=== PATIENT | female | born 1990 | race Caucasian/White ===

== ENCOUNTER 2019-08-04 03:28 | Emergency (ER) | payer OTHER ==
[~2019-08-04] VITALS: Ht 165.1 cm; Wt 72.7 kg
[2019-08-04] MEDS ORDERED: IV NORMAL SALINE 1000ML BAG 1,000 ML IV SCH (04:00)
[2019-08-04 04:01] LABS: BASO % 1 % (0-3); EOS # 0.2 x10^3/uL (0.0-0.7); EOS % 3 % (0-3); LYMPH # 2.4 x10^3/uL (1.0-4.8); LYMPH % 28 % (24-48); MEAN CORPUSCULAR HEMOGLOBIN 29 pg (25-35); MEAN CORPUSCULAR HGB CONC 33 g/dL (31-37); MEAN CORPUSCULAR VOLUME 86 fL (79-100); MONO # 0.8 x10^3/uL (0.0-1.1); MONO % 10 % (0-9); NEUT # 4.8 x10^3/uL (1.8-7.7); NEUT % 58 % (31-73); PLATELET COUNT 241 x10^3/uL (140-400); RED BLOOD COUNT 4.89 x10^6/uL (3.50-5.40); RED CELL DISTRIBUTION WIDTH 13.2 % (11.5-14.5); WHITE BLOOD COUNT 8.3 x10^3/uL (4.0-11.0)
[2019-08-04 04:10] LABS: CALCIUM 8.8 mg/dL (8.5-10.1); CREATININE 1.2 mg/dL (0.6-1.0); GFR 53.1; POTASSIUM 3.8 mmol/L (3.5-5.1)
[2019-08-04] MEDS ORDERED: fentaNYL PF VIAL 100 MCG/2 ML VIAL IV ONE (04:15)
[2019-08-04] MEDS ORDERED: ONDANSETRON PF 4 MG/2 ML VIAL. IV ONE (04:15)
[2019-08-04 04:16] LABS: ALBUMIN 3.7 g/dL (3.4-5.0); ALBUMIN/GLOBULIN RATIO 1.2 (1.0-1.7); TOTAL BILIRUBIN 0.3 mg/dL (0.2-1.0); TOTAL PROTEIN 6.8 g/dL (6.4-8.2)
--- NOTE | 2019-08-04 04:18 | PHYS DOC ---
Past Medical History Past Medical History: Other Additional Past Medical Histor: POLYNEPHRITIS Past Surgical History: Other Additional Past Surgical Histo: RIGHT KIDNEY REMOVED, MULTIPLE ABORTIONS, BREAT AUGMENTATION Smoking Status: Current Every Day Smoker Alcohol Use: Occasionally Adult General Chief Complaint Chief Complaint: FLANK PAIN [facility] HPI Patient is a 28 year old female with history of pyelonephritis and nephrectomy who presents with complaining of right lower quadrant pain. Patient complaining of sudden onset of cramping right lower quadrant pain about 45 minutes ago as a sharp without radiation. Patient said the pain is intermittent and lasts a few seconds and it started every few minutes. Patient states she has had episodes of cramping abdominal pain previously the future and wants to be at this time. Pain is worse than her usual and rated her pain 10 over 10. Patient did not take any pain medication at home. Patient complaining of nausea without vomiting, diarrhea and constipation, urinary symptoms, vaginal bleeding or discharge, . Review of Systems Review of Systems Constitutional: Denies fever or chills [] Eyes: Denies change in visual acuity, redness, or eye pain [] HENT: Denies nasal congestion or sore throat [] Respiratory: Denies cough or shortness of breath [] Cardiovascular: No additional information not addressed in HPI [] GI: Reports abdominal pain, nausea, denies vomiting, bloody stools or diarrhea [] : Denies dysuria or hematuria [] Musculoskeletal: Denies back pain or joint pain [] Integument: Denies rash or skin lesions [] Neurologic: Denies headache, focal weakness or sensory changes [] Endocrine: Denies polyuria or polydipsia [] All other systems were reviewed and found to be within normal limits, except as documented in this note. Current Medications Current Medications Current Medications Medications (Trade) Dose Ordered Sig/Iglesia Start Time Stop Time Status Last Admin Dose Admin Fentanyl Citrate (Fentanyl 2ml Vial) 50 mcg 1X ONCE 08/04/19 04:15 08/04/19 04:16 DC 08/04/19 04:17 50 MCG Ondansetron HCl (Zofran) 4 mg 1X ONCE 08/04/19 04:15 08/04/19 04:16 DC 08/04/19 04:17 4 MG Sodium Chloride 1,000 ml @ 1,000 mls/hr Q1H 08/04/19 04:00 08/04/19 04:59 DC 08/04/19 04:17 1,000 MLS/HR Allergies Allergies Allergies Coded Allergies Type Severity Reaction Last Updated Verified No Known Drug Allergies 08/04/19 No Physical Exam Physical Exam Constitutional: Well developed, well nourished, mild distress, non-toxic appearance. [] HENT: Normocephalic, atraumatic. Eyes: PERRLA, EOMI, conjunctiva normal, no discharge. [] Neck: Normal range of motion, no tenderness, supple, no stridor. [] Cardiovascular:Heart rate regular rhythm, no murmur [] Lungs & Thorax: Bilateral breath sounds clear to auscultation [] Abdomen: Bowel sounds normal, soft, no tenderness, no masses, no pulsatile masses. [] Skin: Warm, dry, no erythema, no rash. [] Back: No tenderness, no CVA tenderness. [] Extremities: No tenderness, no cyanosis, no clubbing, ROM intact, no edema. [] Neurologic: Alert and oriented X 3, no focal deficits noted. [] Psychologic: Affect anxious, judgement normal, mood normal. [] Current Patient Data Vital Signs Vital Signs Date Time Temp Pulse Resp B/P (MAP) Pulse Ox O2 Delivery O2 Flow Rate FiO2 08/04/19 04:17 Room Air 08/04/19 03:32 98.0 109 18 127/69 (88) 99 98.0 Lab Values Laboratory Tests Test 08/04/19 03:50 08/04/19 03:56 08/04/19 04:53 White Blood Count 8.3 x10^3/uL (4.0-11.0) Red Blood Count 4.89 x10^6/uL (3.50-5.40) Hemoglobin 14.0 g/dL (12.0-15.5) Hematocrit 42.0 % (36.0-47.0) Mean Corpuscular Volume 86 fL (79-100) Mean Corpuscular Hemoglobin 29 pg (25-35) Mean Corpuscular Hemoglobin Concent 33 g/dL (31-37) Red Cell Distribution Width 13.2 % (11.5-14.5) Platelet Count 241 x10^3/uL (140-400) Neutrophils (%) (Auto) 58 % (31-73) Lymphocytes (%) (Auto) 28 % (24-48) Monocytes (%) (Auto) 10 % (0-9) H Eosinophils (%) (Auto) 3 % (0-3) Basophils (%) (Auto) 1 % (0-3) Neutrophils # (Auto) 4.8 x10^3/uL (1.8-7.7) Lymphocytes # (Auto) 2.4 x10^3/uL (1.0-4.8) Monocytes # (Auto) 0.8 x10^3/uL (0.0-1.1) Eosinophils # (Auto) 0.2 x10^3/uL (0.0-0.7) Basophils # (Auto) 0.0 x10^3/uL (0.0-0.2) Sodium Level 139 mmol/L (136-145) Potassium Level 3.8 mmol/L (3.5-5.1) Chloride Level 104 mmol/L (98-107) Carbon Dioxide Level 26 mmol/L (21-32) Anion Gap 9 (6-14) Blood Urea Nitrogen 20 mg/dL (7-20) Creatinine 1.2 mg/dL (0.6-1.0) H Estimated GFR (Cockcroft-Gault) 53.1 BUN/Creatinine Ratio 17 (6-20) Glucose Level 122 mg/dL (70-99) H Calcium Level 8.8 mg/dL (8.5-10.1) Total Bilirubin 0.3 mg/dL (0.2-1.0) Aspartate Amino Transferase (AST) 18 U/L (15-37) Alanine Aminotransferase (ALT) 22 U/L (14-59) Alkaline Phosphatase 67 U/L (46-116) Total Protein 6.8 g/dL (6.4-8.2) Albumin 3.7 g/dL (3.4-5.0) Albumin/Globulin Ratio 1.2 (1.0-1.7) Lipase 126 U/L (73-393) POC Urine HCG, Qualitative Hcg negative (Negative) Urine Color Yellow Urine Clarity Clear Urine pH 6.5 Urine Specific [place] 1.020 Urine Protein Negative mg/dL (NEG-TRACE) Urine Glucose (UA) Negative mg/dL (NEG) Urine Ketones (Stick) Negative mg/dL (NEG) Urine Blood Moderate (NEG) Urine Nitrite Negative (NEG) Urine Bilirubin Negative (NEG) Urine Urobilinogen Dipstick 0.2 mg/dL (0.2 mg/dL) Urine Leukocyte Esterase Negative (NEG) Urine RBC 1-2 /HPF (0-2) Urine WBC 1-4 /HPF (0-4) Urine Squamous Epithelial Cells Many /LPF Urine Bacteria Many /HPF (0-FEW) Urine Mucus Slight /LPF Laboratory Tests 08/04/19 03:50 Laboratory Tests 08/04/19 03:50 EKG EKG [] Radiology/Procedures Radiology/Procedures [facility] [address] [place] [address] IMAGING REPORT Signed PATIENT: ALMA DE LA VEGA ACCOUNT: [id number] : 1990 LOCATION: ER AGE: 28 SEX: F EXAM STATUS: REG ER ORD. PHYSICIAN: KODY JAMISON MD REASON: RLQ pain PROCEDURE: CT ABDOMEN PELVIS WO CONTRAST CT abdomen and pelvis without contrast. HISTORY: Right lower quadrant pain CT scan the abdomen pelvis was done without intravenous contrast. Lung bases are clear. There is no effusion. There is marked spondylolisthesis at L5-S1 with spondylolysis at L5. Liver is normal in appearance. Gallbladder is contracted. Spleen and adrenal glands are normal. There is absence of the right kidney. There is no mass or hydronephrosis in the left kidney. There is no bowel obstruction. There is a small midline abdominal hernia containing mesentery. Appendix is normal. There is an intrauterine contraceptive device in normal position. Uterus and ovaries are otherwise unremarkable. IMPRESSION: 1. 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 2. Normal appendix. 3. No bowel obstruction or other acute finding. 4. Absence of the right kidney PQRS Compliance Statement: One or more of the following individualized dose reduction techniques were utilized for this examination: 1. Automated exposure control 2. Adjustment of the mA and/or kV according to patient size 3. Use of iterative reconstruction technique Electronically signed by: Wilian Bryant MD (08/04/2019 5:41 AM) [id number] DICTATED and SIGNED BY: WILIAN BRYANT MD DATE: 08/04/19 0541 Course & Med Decision Making Course & Med Decision Making Pertinent Labs and Imaging studies reviewed. (See chart for details) discharge: I've spoken with the patient and/or caregivers. I've explained the patient's condition, diagnosis and treatment plan based on information available to me at this time. I've answered the patient's and/or caregivers questions and addressed any concerns. The patient and/or caregivers have a good understanding the patient's diagnosis, condition and treatment plan as can be expected at this point. Vital signs have been stabilized. The patient's condition is stable for discharge from the emergency department. The patient will pursue further outpatient evaluation with her primary care provider or other designated consulting physician as outlined in the discharge instructions. Patient and/or caregivers are agreeable to this plan of care and follow-up instructions have been explained in detail. The patient and/or caregi vers have received these instructions in written format and expressed understanding of these discharge instructions. The patient and her caregivers are aware that if any significant change in condition or worsening of symptoms should prompt him to immediately return to this of the closest emergency department. If an emergent department is not readily available I would encourage him to call 911. Francisca Disclaimer Dragon Disclaimer This electronic medical record was generated, in whole or in part, using a voice recognition dictation system. Departure Departure Impression: Primary Impression: Colicky abdominal pain Disposition: HOME, SELF-CARE (at 0600) Condition: IMPROVED Patient Instructions: Abdominal Pain (Nonspecific) Additional Instructions: Drink plenty of liquids Follow-up with your primary care physician in 3-5 days Return to ER if not getting better Scripts Hydrocodone/Apap 5-325 (NORCO 5-325 TABLET) 1 Each Tablet 1 TAB PO PRN Q6HRS PRN for PAIN, #10 TAB 0 Refills Prov: KODY JAMISON MD 08/04/19 KODY JAMISON MD Aug 04, 2019 04:18
[2019-08-04 05:03] LABS: BILIRUBIN,URINE NEGATIVE (NEG); CLARITY,URINE CLEAR; COLOR,URINE YELLOW; NITRITE,URINE NEGATIVE (NEG); PH,URINE 6.5; PROTEIN,URINE NEGATIVE (NEG-TRACE); UROBILINOGEN,URINE 0.2 mg/dL (0.2 mg/dL)
[2019-08-04 05:18] LABS: SQUAMOUS EPITHELIAL CELL,UR MANY /LPF
[2019-08-04 05:19] LABS: BACTERIA,URINE MANY /HPF (0-FEW)
[2019-08-04 05:38] VITALS: BP 126/69
--- NOTE | 2019-08-04 05:44 | RAD ---
CT abdomen and pelvis without contrast. HISTORY: Right lower quadrant pain CT scan the abdomen pelvis was done without intravenous contrast. Lung bases are clear. There is no effusion. There is marked spondylolisthesis at L5-S1 with spondylolysis at L5. Liver is normal in appearance. Gallbladder is contracted. Spleen and adrenal glands are normal. There is absence of the right kidney. There is no mass or hydronephrosis in the left kidney. There is no bowel obstruction. There is a small midline abdominal hernia containing mesentery. Appendix is normal. There is an intrauterine contraceptive device in normal position. Uterus and ovaries are otherwise unremarkable. IMPRESSION: 1. 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 2. Normal appendix. 3. No bowel obstruction or other acute finding. 4. Absence of the right kidney PQRS Compliance Statement: One or more of the following individualized dose reduction techniques were utilized for this examination: 1. Automated exposure control 2. Adjustment of the mA and/or kV according to patient size 3. Use of iterative reconstruction technique Electronically signed by: Wilian Rea MD (08/04/2019 5:41 AM) [id number]
[2019-08-04] MEDS ORDERED: HYDR-3164 PO (06:03)
== END 2019-08-04 06:09 | disposition home or self-care (01) ==
LOC: ER 03:28
DX: R10.84 Generalized abdominal pain (principal); F17.200 Nicotine dependence, unspecified, uncomplicated; R10.31 Right lower quadrant pain; R11.0 Nausea; Z87.19 Personal history of other diseases of the digestive system; Z90.5 Acquired absence of kidney
CPT/HCPCS: 36415; 74176; 80053; 81001; 81025; 83690; 85025; 87086; 96374; 96375; 99285; J2405; J3010; J7030